=== PATIENT | female | born 1970 | race Caucasian/White ===

== ENCOUNTER 2023-03-02 16:40 | Day surgery (SDC) | payer BC, OTHER ==
[2023-03-02] MEDS ORDERED: IRON SUCROSE INJECTION 200 MG in SODIUM CHLORIDE 90 ML IVPB ONE (17:00)
[2023-03-02 18:14] VITALS: BP 140/82; PULSE 86; RESP 18; TEMP 98.4
== END 2023-03-02 18:17 | disposition home or self-care (01) ==
LOC: FINFUSION 16:40 → FM/S 16:43 → FINFUSION 18:17
PROVIDERS: ATTEND Family Medicine
PROC: 3E033GC Introduction of Other Therapeutic Substance into Peripheral Vein, Percutaneous Approach (ICD-10-PCS; principal; 2023-03-02)
DX: D50.9 Iron deficiency anemia, unspecified (principal)
CPT/HCPCS: 96365; J1756

== ENCOUNTER → 2024-05-18 | Day surgery (SDC) | payer BC, OTHER | END | disposition home or self-care (01) | LOC: JRADUS-SUR 08:04 | PROVIDERS: ATTEND Obstetrics & Gynecology | PROC: 0H9U3ZX Drainage of Left Breast, Percutaneous Approach, Diagnostic (ICD-10-PCS; principal; 2024-05-18) | DX: N60.12 Diffuse cystic mastopathy of left breast (principal) | CPT/HCPCS: 19083; 19084; 76942-TC; 77065-TC; 87899; 88305-TC; 88342-TC; A4648 ==